=== PATIENT | female | born 1990 | race Caucasian/White ===

== ENCOUNTER → 2017-01-06 | Outpatient (CLI) | payer MEDICAID, OTHER ==
[~2017-01-06] MED LIST: CITA40TA12 PO; SERT50TA PO; TOPI50TA35 PO
== END | disposition home or self-care (01) ==
LOC: CFH 15:25
PROVIDERS: ATTEND Internal Medicine Cardiovascular Disease
DX: I08.1 Rheumatic disorders of both mitral and tricuspid valves (principal); I37.1 Nonrheumatic pulmonary valve insufficiency
CPT/HCPCS: 93306

== ENCOUNTER 2017-02-24 10:15 | Emergency (ER) | payer MEDICAID ==
[~2017-02-24] VITALS: Ht 167.6 cm; Wt 79.0 kg
[2017-02-24] MEDS ORDERED: SODIUM CHLORIDE FLUSH 10ML SYR IVF ONE (11:00)
[2017-02-24] MEDS ORDERED: PREN-1 PO (11:11)
[2017-02-24] MEDS ORDERED: SODIUM CHLORIDE 0.9% 1,000ML IVBOLUS ONE (11:30)
[2017-02-24 11:52] LABS: BLOOD UREA NITROGEN 6 mg/dL (7-18)
[2017-02-24 12:41] VITALS: BP 94/61
== END 2017-02-24 12:43 | disposition home or self-care (01) ==
LOC: ED 12:30
DX: O26.892 Other specified pregnancy related conditions, second trimester (principal); Z3A.17 17 weeks gestation of pregnancy; R10.32 Left lower quadrant pain; M54.6 Pain in thoracic spine
CPT/HCPCS: 36415; 76770; 76805; 80048; 81003; 82040; 85025; 96360; 99285; J7030

== ENCOUNTER 2017-03-21 10:38 | Outpatient (CLI) | payer MEDICAID ==
[~2017-03-21] VITALS: Ht 167.6 cm; Wt 79.0 kg
[~2017-03-21 10:38] MED LIST changes: +PREN-1 PO
[2017-03-21 11:12] VITALS: BP 115/66
[2017-03-21] MEDS ORDERED: tylenol pm (12:02)
[2017-03-21] MEDS ORDERED: albuterol (12:37)
== END 2017-03-21 13:00 | disposition home or self-care (01) ==
LOC: LDOP 10:38
PROVIDERS: ATTEND Obstetrics & Gynecology
DX: O46.92 Antepartum hemorrhage, unspecified, second trimester (principal); O26.852 Spotting complicating pregnancy, second trimester; O62.9 Abnormality of forces of labor, unspecified; O99.512 Diseases of the respiratory system complicating pregnancy, second trimester; O99.342 Other mental disorders complicating pregnancy, second trimester; O26.892 Other specified pregnancy related conditions, second trimester; J45.909 Unspecified asthma, uncomplicated; F32.9 Major depressive disorder, single episode, unspecified; R51 Headache; Z3A.20 20 weeks gestation of pregnancy
CPT/HCPCS: 59025; 81001; 87086; 99211; G0463

== ENCOUNTER 2017-04-06 13:03 | Observation (INO) | payer MEDICAID ==
[~2017-04-06] VITALS: Ht 167.6 cm; Wt 80.5 kg
[~2017-04-06 13:03] MED LIST changes: +albuterol; +tylenol pm
[2017-04-06] MEDS ORDERED: D5%-LACTATED RINGERS 1,000 ML IV SCH ×2 (14:05→14:30)
[2017-04-06] MEDS ORDERED: ONDANSETRON 2MG/ML, 2ML ONE (14:27)
[2017-04-06] MEDS ORDERED: ONDANSETRON 2MG/ML, 2ML IVPush ONE (14:30)
[2017-04-06 14:45] LABS: BLOOD UREA NITROGEN 7 mg/dL (7-18)
[2017-04-06 14:48] LABS: ASPARTATE AMINO TRANSFERASE 13 U/L (15-37)
[2017-04-06] MEDS ORDERED: ACETAMINOPHEN 325 MG TABLET ONE ×2 (17:17)
[2017-04-06] MEDS ORDERED: ACETAMINOPHEN 325 MG TABLET PO PRN (17:30)
[2017-04-06] MEDS ORDERED: ACETAMINOPHEN 325 MG TABLET PO ONE (17:34)
== END 2017-04-06 18:10 | disposition home or self-care (01) ==
LOC: LDOP 13:03 → LDIP 14:00
PROVIDERS: ADMIT Obstetrics & Gynecology; ATTEND Obstetrics & Gynecology
DX: O46.90 Antepartum hemorrhage, unspecified, unspecified trimester (principal); O26.899 Other specified pregnancy related conditions, unspecified trimester; R10.9 Unspecified abdominal pain; Z3A.00 Weeks of gestation of pregnancy not specified
CPT/HCPCS: 36415; 59025; 76817; 80053; 81001; 85025; 87086; 96361; 96374; G0378; J2405; 96360; J7121

== ENCOUNTER 2017-04-15 18:29 | Outpatient (CLI) | payer MEDICAID ==
[~2017-04-15] VITALS: Ht 167.6 cm; Wt 80.2 kg
[2017-04-15 19:05] VITALS: BP 114/61
== END 2017-04-15 21:40 | disposition home or self-care (01) ==
LOC: LDOP 18:29
PROVIDERS: ATTEND Obstetrics & Gynecology
DX: O60.02 Preterm labor without delivery, second trimester (principal); O99.342 Other mental disorders complicating pregnancy, second trimester; F32.9 Major depressive disorder, single episode, unspecified; Z3A.24 24 weeks gestation of pregnancy
CPT/HCPCS: 36415; 59025; 81003; 82731; 87086; 99211; G0463

== ENCOUNTER 2017-07-02 11:48 | Outpatient (CLI) | payer MEDICAID ==
[2017-07-02] MEDS ORDERED: NITROFURANTOIN (MACROBID) 100 MG CAPSULE PO ONE (13:00)
[2017-07-02] MEDS ORDERED: NITR100C56 PO (13:21)
== END 2017-07-02 15:00 | disposition home or self-care (01) ==
LOC: LDOP 11:48
PROVIDERS: ATTEND Obstetrics & Gynecology
DX: O36.8130 Decreased fetal movements, third trimester, not applicable or unspecified (principal); O26.893 Other specified pregnancy related conditions, third trimester; R10.9 Unspecified abdominal pain; Z3A.33 33 weeks gestation of pregnancy
CPT/HCPCS: 59025; 76819; 81001; 87086; 99211; G0463

== ENCOUNTER 2017-07-12 15:30 | Outpatient (CLI) | payer MEDICAID ==
[~2017-07-12] VITALS: Ht 167.6 cm; Wt 85.5 kg
[~2017-07-12 15:30] MED LIST changes: +NITR100C56 PO
[2017-07-12 15:45] VITALS: BP 115/75
== END 2017-07-12 16:55 | disposition home or self-care (01) ==
LOC: LDOP 15:30
PROVIDERS: ATTEND Obstetrics & Gynecology
DX: O62.9 Abnormality of forces of labor, unspecified (principal); O99.343 Other mental disorders complicating pregnancy, third trimester; O26.893 Other specified pregnancy related conditions, third trimester; R55 Syncope and collapse; Z3A.36 36 weeks gestation of pregnancy
CPT/HCPCS: 59025; 99211; G0463

== ENCOUNTER 2017-07-19 22:56 | Outpatient (CLI) | payer MEDICAID ==
[~2017-07-19] VITALS: Ht 167.6 cm; Wt 86.4 kg
[2017-07-19 20:43] VITALS: BP 123/73
[2017-07-19] MEDS ORDERED: LACTATED RINGERS 1,000 ML IV SCH (23:15)
[2017-07-19] MEDS ORDERED: ONDANSETRON 2MG/ML, 2ML ONE (23:16)
[2017-07-19] MEDS ORDERED: ONDANSETRON 2MG/ML, 2ML IVPush PRN (23:30)
== END 2017-07-20 04:00 | disposition home or self-care (01) ==
LOC: LDOP 22:56
PROVIDERS: ATTEND Obstetrics & Gynecology
DX: O62.9 Abnormality of forces of labor, unspecified (principal); O60.03 Preterm labor without delivery, third trimester; O99.343 Other mental disorders complicating pregnancy, third trimester; F32.9 Major depressive disorder, single episode, unspecified; Z3A.36 36 weeks gestation of pregnancy
CPT/HCPCS: 59025; 81001; 87086; 96360; 96361; 99211; J2405; J7120; G0463

== ENCOUNTER → 2018-06-03 | Outpatient (CLI) | payer MEDICAID | END | disposition home or self-care (01) | LOC: CFH 14:51 | PROVIDERS: ATTEND Nurse Practitioner Family | DX: N63.10 Unspecified lump in the right breast, unspecified quadrant (principal); Z80.3 Family history of malignant neoplasm of breast; Z88.0 Allergy status to penicillin; Z88.8 Allergy status to other drugs, medicaments and biological substances | CPT/HCPCS: 77066 ==

== ENCOUNTER 2019-08-30 14:44 | Outpatient (CLI) | payer MEDICAID | END 2019-08-30 23:59 | disposition home or self-care (01) | LOC: CFH 14:44 | PROVIDERS: ATTEND Nurse Practitioner Family | DX: N63.10 Unspecified lump in the right breast, unspecified quadrant (principal); R92.2 Inconclusive mammogram; Z88.0 Allergy status to penicillin; Z93.0 Tracheostomy status | CPT/HCPCS: 76642; 77066; G0279 ==

== ENCOUNTER 2020-06-28 18:53 | Emergency (ER) | payer MEDICAID ==
[~2020-06-28] VITALS: Ht 167.6 cm; Wt 82.1 kg
[2020-06-28] MEDS ORDERED: ALBUTEROL/IPRATROPIUM 2.5MG/0.5MG, 3 ML ONE (19:18)
[2020-06-28] MEDS ORDERED: ALBUTEROL/IPRATROPIUM 2.5MG/0.5MG, 3 ML NPPB ONE (19:30)
--- NOTE | 2020-06-28 19:35 | NUR ---
Duoneb complete at this time, pt reports relief and appears less short of breath. O2 sat 100% on RA. Pending lab results at this time
[2020-06-28 20:32] LABS: ALANINE AMINOTRANSFERASE 30 U/L (12-78); ALBUMIN 3.4 g/dL (3.4-5.0); ANION GAP 9 mmol/L (5-15); CALCIUM 9.2 mg/dL (8.5-10.1); CHLORIDE 107 mmol/L (98-107); CREATININE 0.85 mg/dL (0.55-1.02)
[2020-06-28 20:36] LABS: ALKALINE PHOSPHATASE 87 U/L (45-117); BILIRUBIN,TOTAL 0.4 mg/dL (0.2-1.0); TOTAL PROTEIN 7.5 g/dL (6.4-8.2)
[2020-06-28 20:54] LABS: BASOPHILS # (AUTO) 0.04 x10^3/uL (0-0.1); BASOPHILS % (AUTO) 1 % (0-1); EOSINOPHILS # (AUTO) 0.12 x10^3/uL (0-0.4); EOSINOPHILS % (AUTO) 2 % (1-7); LYMPHOCYTES # (AUTO) 2.08 x10^3/uL (1-3.4); LYMPHOCYTES % (AUTO) 25 % (22-44); MD NO; MEAN CORPUSCULAR HEMOGLOBIN 31.4 pg (27.0-34.8); MEAN CORPUSCULAR HGB CONC 33.2 g/dL (32.4-35.8); MEAN CORPUSCULAR VOLUME 94.4 fL (80-100); MEAN PLATELET VOLUME 8.4 fL (7.4-10.4); MONOCYTES # (AUTO) 0.39 x10^3/uL (0.2-0.8); MONOCYTES % (AUTO) 5 % (2-9); NEUTROPHILS # (AUTO) 5.56 x10^3/uL (1.8-6.8); NEUTROPHILS % (AUTO) 68 % (42-75); PLATELET COUNT 291 x10^3/uL (130-400); RED BLOOD COUNT 4.09 x10^6/uL (3.82-5.3); RED CELL DISTRIBUTION WIDTH 11.5 % (9.6-15.2)
[2020-06-28] MEDS ORDERED: OMNIPAQUE 350 MG/ML, 75ML BOTTLE ONE (20:59)
[2020-06-28 22:11] VITALS: BP 116/62
== END 2020-06-28 22:13 | disposition home or self-care (01) ==
LOC: ED 19:39
DX: J45.31 Mild persistent asthma with (acute) exacerbation (principal); R94.31 Abnormal electrocardiogram [ECG] [EKG]; G40.909 Epilepsy, unspecified, not intractable, without status epilepticus; Z87.11 Personal history of peptic ulcer disease; G43.909 Migraine, unspecified, not intractable, without status migrainosus
CPT/HCPCS: 36415; 71275; 80053; 84703; 85025; 85379; 93005; 94640; 99285; J7512; Q9967

== ENCOUNTER 2020-09-16 18:38 | Emergency (ER) | payer MEDICAID ==
[~2020-09-16] VITALS: Ht 167.6 cm; Wt 82.5 kg
[2020-09-16 18:54] VITALS: BP 114/75
--- NOTE | 2020-09-16 19:09 | NUR ---
PT. IS A & O X 4 WITH A GCS OF 15. PT. HAS C/O LEFT SHOULDER PAIN AFTER LIFTING BATTERIES(CAR) ONTO A SHELF ON FRIDAY. PT. IS PINK, WARM AND DRY. LUNGS ARE CTA THROUGHOUT. MM ARE MOIST WITH CAP REFILL LESS THAN 2 SECONDS. PT. IS ABLE TO DHALIWAL WNL. PULSES ARE +2. PT.'S ABD. IS SOFT AND NON-TENDER WITH BS + X 4 QUADS. PT. IS RESTING WITH THE HOB ELEVATED GREATER THAN 30 DEGREES. PT. HAS A BLANKET IN PLACE FOR WARMTH AND THE SIDERAILS REMAIN UP X 2 WITH THE CALL LIGHT IN PLACE.
[2020-09-16] MEDS ORDERED: OXYcodone/APAP 5/325MG TABLET PO ONE (19:30)
[2020-09-16] MEDS ORDERED: OXYcodone/APAP 5/325MG TABLET ONE (19:36)
--- NOTE | 2020-09-16 19:43 | NUR ---
TASK RN: PT REFUSED PAIN MEDICATION SHE WILL BE DRIVING HOME. DC EDUCATION PROVIDED, PT DEMONSTRATES UNDERSTANDING. SPLINT APPLIED BY TECH. PT AMBULATED STEADILY TO DC WITH TECH
== END 2020-09-16 19:45 | disposition home or self-care (01) ==
LOC: ED 19:19
DX: M25.512 Pain in left shoulder (principal); G40.909 Epilepsy, unspecified, not intractable, without status epilepticus; G43.909 Migraine, unspecified, not intractable, without status migrainosus; Z87.11 Personal history of peptic ulcer disease; J45.909 Unspecified asthma, uncomplicated
CPT/HCPCS: 99283